=== PATIENT | female | born 1930 | race Caucasian/White ===

== ENCOUNTER 2018-10-13 12:09 | Inpatient (IN) | payer MEDICARE, BC ==
[~2018-10-13] VITALS: Ht 154.9 cm; Wt 57.7 kg
[2018-10-13] VITALS (12 sets, daily range): BP systolic 73–192; BP diastolic 28–82
[2018-10-13 12:40] LABS: BASOPHILS % (AUTO) 0.6 % (0-1); HEMATOCRIT 37.4 % (35.0-45.0); HEMOGLOBIN 12.6 g/dl (12.0-16.0); LYMPHOCYTES # (AUTO) 1.4 X10'3 (1.1-4.8); LYMPHOCYTES % (AUTO) 29.9 % (21-51); MEAN CORPUSCULAR HGB CONC 33.7 g/dL (33.0-36.5); MEAN PLATELET VOLUME 6.5 FL (7.4-10.4); MONOCYTES # (AUTO) 0.7 X10'3 (0-0.9); MONOCYTES % (AUTO) 14.9 % (2-12); NEUTROPHILS # (AUTO) 2.6 X10'3 (1.8-7.7); NEUTROPHILS % (AUTO) 53.6 % (42-75); PLATELET COUNT 297 X10'3 (140-440); RED BLOOD COUNT 4.07 X10'6 (4.20-5.60); RED CELL DISTRIBUTION WIDTH 12.8 % (11.5-14.5); WHITE BLOOD COUNT 4.8 X10'3 (4.5-11.0)
--- NOTE | 2018-10-13 12:40 | NUR ---
DR HORTON AT THE BEDSIDE PT BP 217/96. PER MD HE WILL ORDER NITRO IV TO REDUCE THE BP.PT DAUGHTER IN LAW AT BEDSIDE .CO PRESSURE PAIN 5/10 .
[2018-10-13 12:56] LABS: PARTIAL THROMBOPLASTIN TIME 27 SECONDS (22-32)
[2018-10-13 12:58] LABS: ALANINE AMINOTRANSFERASE 24 U/L (12-78); ALBUMIN 3.7 G/DL (3.4-5.0); ALBUMIN/GLOBULIN RATIO 1.2 (1.1-1.5); ALKALINE PHOSPHATASE 54 IU/L (46-116); ANION GAP 9 (8-16); ASPARTATE AMINO TRANSFERASE 17 U/L (10-37); BILIRUBIN,TOTAL 0.3 MG/DL (0.1-1.0); BLOOD UREA NITROGEN 21 MG/DL (7-18); BUN/CREATININE RATIO 25.6 (6.6-38.0); CALCIUM 8.6 MG/DL (8.5-10.1); CHLORIDE 91 MMOL/L (99-107); CREATININE 0.82 MG/DL (0.40-0.90); GLUCOSE 129 MG/DL (70-104); POTASSIUM 4.3 MMOL/L (3.5-5.1); SODIUM 125 MMOL/L (135-145); TOTAL CARBON DIOXIDE 24.7 MMOL/L (24-32); TOTAL PROTEIN 6.7 G/DL (6.4-8.2); eGFR 66 ML/MIN
[2018-10-13] MEDS ORDERED: nitroGLYCERIN-Tridil 50MG/D5W 250 ML IV PRN (13:03)
[2018-10-13] MEDS ORDERED: ipratropium/albuterol 3ml nebule NEB PRN (14:10)
[2018-10-13] MEDS ORDERED: magnesium 2GM in 50ml NS 50 ML IV PRN (14:10)
[2018-10-13] MEDS ORDERED: ondansetron/PF 4mg/2ml inj IV PRN (14:10)
[2018-10-13] MEDS ORDERED: magnesium 4gm in 100ml NS 100 ML IV PRN (14:10)
[2018-10-13] MEDS ORDERED: magnesium hydroxide 30ml (MOM) UD suspension PO PRN (14:10)
[2018-10-13] MEDS ORDERED: potassium Cl 20 mEq SR tablet PO PRN ×2 (14:10)
[2018-10-13] MEDS ORDERED: mag hydrox/Alum hydrox/simeth 30ml oral suspension PO PRN (14:10)
[2018-10-13] MEDS ORDERED: potassium CL 10mEq/100ml bag 100 ML IV PRN ×2 (14:10)
[2018-10-13] MEDS ORDERED: nitroGLYCERIN-Tridil 50MG/D5W 250 ML IV SCH (14:10)
[2018-10-13] MEDS ORDERED: magnesium Cl slow-release 64mg tablet PO PRN (14:10)
[2018-10-13] MEDS ORDERED: VITA1CAP19 PO (14:28)
[2018-10-13] MEDS ORDERED: LEVO125T PO (14:28)
[2018-10-13] MEDS ORDERED: POTA8TAB8 PO (14:28)
[2018-10-13] MEDS ORDERED: POLY17PO10 PO (14:28)
[2018-10-13] MEDS ORDERED: METO-395 PO (14:28)
[2018-10-13] MEDS ORDERED: GLUC100017 PO (14:28)
[2018-10-13] MEDS ORDERED: MAGN400T28 PO (14:28)
[2018-10-13] MEDS ORDERED: CHOL10002 PO (14:28)
[2018-10-13] MEDS ORDERED: RANI-648 PO ×2 (14:28)
[2018-10-13] MEDS ORDERED: ESTR0.5T TOP (14:28)
[2018-10-13] MEDS ORDERED: TURM1POW PO (14:28)
[2018-10-13] MEDS ORDERED: DICL100G15 TOP (14:28)
[2018-10-13] MEDS ORDERED: PYRI50TA13 PO (14:28)
[2018-10-13] MEDS ORDERED: KRIL500C PO (14:28)
[2018-10-13] MEDS ORDERED: METF-436 PO (14:28)
[2018-10-13] MEDS ORDERED: LIOT25TA6 PO (14:28)
[2018-10-13] MEDS ORDERED: CLON0.1T PO (14:28)
[2018-10-13] MEDS ORDERED: LEVO112T52 PO (14:28)
[2018-10-13] MEDS ORDERED: CYAN-51 PO (14:28)
[2018-10-13] MEDS ORDERED: MAGN250T29 PO (14:33)
[2018-10-13] MEDS ORDERED: AZIL1TAB2 PO (15:01)
[2018-10-13] MEDS ORDERED: ESTR42.510 TP (16:46)
--- NOTE | 2018-10-13 18:00 | NUR ---
Patient in room PCU 3023. I have received report from Mau JOSHUA and had the opportunity to ask questions and assume patient care.
--- NOTE | 2018-10-13 18:32 | NUR ---
Problems reprioritized. Patient report given, questions answered & plan of care reviewed with TRES Carmichael.
[2018-10-13] MEDS: simethicone 80mg chew tab PO SCH (20:38)
[2018-10-13] MEDS: famotidine 20mg tablet PO SCH (20:38)
[2018-10-13] MEDS ORDERED: metoprolol succinate 25mg (24-HOUR) SR. Tablet PO SCH (21:00)
[2018-10-13] MEDS ORDERED: VITAMIN B COMPLEX PO SCH (21:00)
[2018-10-13] MEDS ORDERED: polyethylene glycol 3350 17gm powd pack PO SCH (21:00)
[2018-10-13] MEDS ORDERED: vitamin B comp w/Vit. C tab 1 TAB TABLET PO SCH (21:00)
[2018-10-13] MEDS ORDERED: cyanocobalamin 500mcg tablet PO SCH (21:00)
[2018-10-13] MEDS: cloNIDine 0.1 mg tablet PO PRN (21:43)
[2018-10-14] VITALS (21 sets, daily range): BP systolic 110–180; BP diastolic 31–76
--- NOTE | 2018-10-14 | NUR ---
Patient having low blood pressure, called MD Neumann and okayed to DC Nitro drip.
[2018-10-14 00:48] LABS: BASOPHILS % (AUTO) 0.5 % (0-1); EOSINOPHILS # (AUTO) 0.1 X10'3 (0-0.9); EOSINOPHILS % (AUTO) 1.1 % (0-6); HEMATOCRIT 33.5 % (35.0-45.0); HEMOGLOBIN 11.7 g/dl (12.0-16.0); LYMPHOCYTES # (AUTO) 1.9 X10'3 (1.1-4.8); MEAN CORPUSCULAR HEMOGLOBIN 31.9 PG (27.0-31.0); MEAN CORPUSCULAR HGB CONC 35.1 g/dL (33.0-36.5); MEAN CORPUSCULAR VOLUME 90.9 FL (78-98); MEAN PLATELET VOLUME 6.4 FL (7.4-10.4); MONOCYTES # (AUTO) 0.7 X10'3 (0-0.9); MONOCYTES % (AUTO) 14.9 % (2-12); NEUTROPHILS # (AUTO) 2.3 X10'3 (1.8-7.7); NEUTROPHILS % (AUTO) 45.5 % (42-75); PLATELET COUNT 257 X10'3 (140-440); RED BLOOD COUNT 3.68 X10'6 (4.20-5.60); RED CELL DISTRIBUTION WIDTH 12.7 % (11.5-14.5)
[2018-10-14 00:58] LABS: ALANINE AMINOTRANSFERASE 23 U/L (12-78); ALBUMIN 3.3 G/DL (3.4-5.0); ALBUMIN/GLOBULIN RATIO 1.2 (1.1-1.5); ALKALINE PHOSPHATASE 48 IU/L (46-116); ANION GAP 8 (8-16); ASPARTATE AMINO TRANSFERASE 15 U/L (10-37); BILIRUBIN,TOTAL 0.3 MG/DL (0.1-1.0); BLOOD UREA NITROGEN 18 MG/DL (7-18); BUN/CREATININE RATIO 22.8 (6.6-38.0); CALCIUM 8.3 MG/DL (8.5-10.1); CHLORIDE 95 MMOL/L (99-107); CREATININE 0.79 MG/DL (0.40-0.90); GLUCOSE 97 MG/DL (70-104); SODIUM 129 MMOL/L (135-145); TOTAL CARBON DIOXIDE 25.8 MMOL/L (24-32); eGFR 69 ML/MIN
[2018-10-14 01:01] LABS: CHOL/HDL RATIO 1.9 (0.00-4.99); CHOLESTEROL 148 MG/DL (0-200); HDL CHOLESTEROL 78 MG/DL (35-60); LDL CHOLESTEROL 66 MG/DL (50-100); MAGNESIUM 1.8 MG/DL (1.5-2.4); TRIGLYCERIDES 36 MG/DL (20-135)
--- NOTE | 2018-10-14 04:55 | NUR ---
Patient family member, Cierra, stated that Loan's blood pressure can be erratic, "She can be gardening and have a blood pressure of 144 but when she sits down with family and chats she'll have a blood pressure of 170s."
--- NOTE | 2018-10-14 05:12 | NUR ---
Patient has slept well this shift. Ambulates to the bathroom with family's help at the bedside. No chest pain this shift. Blood pressure has been erratic, please see the vital signs. Patient is eager to go home.
--- NOTE | 2018-10-14 06:19 | NUR ---
Problems reprioritized. Patient report given, questions answered & plan of care reviewed with Mau JOSHUA.
--- NOTE | 2018-10-14 06:25 | NUR ---
Patient in room PCU 3023. I have received report from TRES Carmichael and had the opportunity to ask questions and assume patient care.
[2018-10-14] MEDS ORDERED: levoTHYROXINE 125mcg tablet PO SCH (07:00)
[2018-10-14] MEDS: K and/or MAG REPLACEMENT MC SCH (07:00)
--- NOTE | 2018-10-14 07:25 | NUR ---
PAGER ID: [phone] MESSAGE: [id number] Dr Ritchie Baker was going to order a cardiac consult but that never was done yesterday. Could we get a cardiac consult ordered. TRES León Ext [phone]
[2018-10-14] MEDS ORDERED: CHOLECALCIFEROL PO SCH (08:00)
[2018-10-14] MEDS ORDERED: non-formulary drug (Magnesium Oxide (Magnesium) 250 MG) PO SCH (08:00)
[2018-10-14] MEDS ORDERED: GLUCOSAMINE SULFATE PO SCH (08:00)
[2018-10-14] MEDS ORDERED: pyridoxine 50mg tablet PO SCH (08:00)
[2018-10-14] MEDS ORDERED: vitamin D (cholecalciferol) 1,000 unit tablet PO SCH (08:00)
[2018-10-14] MEDS ORDERED: LIOthyronine 25mcg tablet PO SCH (08:00)
[2018-10-14] MEDS ORDERED: TURMERIC 1 GM PO SCH (08:00)
[2018-10-14] MEDS: magnesium oxide 400mg tablet PO SCH (08:13)
[2018-10-14] MEDS: famotidine 20mg tablet PO SCH ×2 (08:14→19:11)
[2018-10-14] MEDS: simethicone 80mg chew tab PO SCH ×3 (08:14→20:15)
--- NOTE | 2018-10-14 08:49 | NUR ---
PAGER ID: [phone] MESSAGE: [id number] Loan Nova: Dr Dugan was going to order a cardio consult for her yesterday but never ordered one. Do you want to order one for her? TRES León Ext [phone]
[2018-10-14] MEDS ORDERED: NIFEdipine XL 30mg tablet PO SCH (10:00)
--- NOTE | 2018-10-14 10:15 | NUR ---
Patient in room PCU 3023. I have received report from TRES León and had the opportunity to ask questions and assume patient care.
--- NOTE | 2018-10-14 13:06 | NUR ---
Page sent to Dr. Sharif PAGER ID: [phone] MESSAGE: [phone] Loan Nova: Calling a rapid response on patient, heart rhythm converted to junctional, BP 80/50, patient symoptomatic on PCU
--- NOTE | 2018-10-14 13:10 | NUR ---
Upon entering patient's room, pt appeared diaphoretic, sweaty and stated felt dizzy. BP 80/50 and pulse 38. Rapid response called. ICU nurse at bedside and fluid bolus of [address] Sharif notified. After fluids administered, BP came up to 111/40, HR now 77. Patient states feeling better. Will continue to monitor.
[2018-10-14] MEDS ORDERED: polyethylene glycol 3350 17gm powd pack PO PRN (13:15)
--- NOTE | 2018-10-14 13:30 | NUR ---
I SPOKE TO DR MARTINEZ REGARDING EVENTS OF RAPID RESPONSE. DR MARTINEZ REQUESTED PT HAVE NS@100 X 6 HOURS. HOLD TONIGHT DOSE OF TOPROL XL. HE AGREES WITH PT DOSE OF PROCARDIA BEING LOWERED TO 30 MG Q DAY. WE WILL CONTINUE TO MONITOR. CURRENT HR IS SR @76 BPM, BP 111/40 MAP 55. FAMILY REMAINS AT BEDSIDE. Addendum: 10/14/18 at 1347 by Allison Faye RN Amended: Links added.
[2018-10-14] MEDS ORDERED: normal saline 1000ml 1,000 ML IV SCH (13:50)
--- NOTE | 2018-10-14 13:52 | NUR ---
Malnutrition consult: Pt seen at bedside reports low appetite for the last few weeks which she believes is secondary to medications. Pt reports -4 lbs in two weeks which is non-significant wt loss of 3%. Pt reports UBW 128-129 lbs, current documented wt is 127 lbs. Pt currently on heart healthy diet documented with 50% PO intake x 1 meal likely meeting nutrient needs for geriatric age. Pt with no decrease in muscle strength, edema, or visible fat or muscle wasting. Pt currently does not meet criteria for malnutrition. Pt denies food preferences at this time and was provided with alternative heart healthy menu to provide additional food options as well as RD contact information. Pt denies food allergies, difficulty chewing/swallowing, or constipation/diarrhea. Will continue to follow. Addendum: 10/14/18 at [address] Amended: Links added.
--- NOTE | 2018-10-14 18:00 | NUR ---
Patient in room PCU 3023. I have received report from Bree JOSHUA and had the opportunity to ask questions and assume patient care.
--- NOTE | 2018-10-14 18:54 | NUR ---
Problems reprioritized. Patient report given, questions answered & plan of care reviewed with TRES Carmichael.
--- NOTE | 2018-10-14 19:30 | NUR ---
BLOOD PRESSURE DROP Patient's blood pressure was stable in the 130s for SBP for two hours and patient felt good to get onto the bedside commode. I was there to give her a medication at 1900 when she started to slur her words and HR dropped to 40s and 30s. With the help of other staff we got her back to bed and she became alert and oriented, no pain, and stating "I'm alright." Bipin Blue was called but was not needed. I called MD Neumann about the event and no bedrest order was given, just to make sure "someone is with her when she is out of bed." After the episode, family member Cierra mentioned that the patient "strains every time she goes to the bathroom at home and we try to tell her not to." Will continue to monitor the patient.
[2018-10-14] MEDS ORDERED: metoprolol tartrate 12.5mg (1/2 tablet) PO SCH (21:00)
--- NOTE | 2018-10-14 21:00 | NUR ---
LOPRESSOR HELD Patient refused medication after vagal episode on the bedside commode.
--- NOTE | 2018-10-14 22:25 | NUR ---
DOUGLAS CATHETER Patient tried to use the WIC and bedpan to void for 20 min. but was unable to. Family member Cierra and I sat her up on the side of the bed to see how the patient would tolerate the position. Sadly the heart rate dropped to the 50s and we got her back into bed. MD Neumann was notified of the situation and gave the order for a Douglas catheter. Douglas catheter was placed and patient is feeling better from pressure relief. Will continue to monitor.
[2018-10-15] VITALS (16 sets, daily range): BP systolic 153–199; BP diastolic 52–97
[2018-10-15] MEDS: cloNIDine 0.1 mg tablet PO PRN (01:51)
--- NOTE | 2018-10-15 03:39 | NUR ---
HIGH BLOOD PRESSURE Patient has had SBP 177-182 for a few hours, please see vitals for reference, even with Clonidine 0.1 mg at 0151. MD Neumann notified and has stated to continue to monitor the patient. Will continue to monitor patient.
--- NOTE | 2018-10-15 06:08 | NUR ---
Problems reprioritized. Patient report given, questions answered & plan of care reviewed with Mau JOSHUA.
--- NOTE | 2018-10-15 06:17 | NUR ---
Patient in room PCU 3023. I have received report from TRES Carmichael and had the opportunity to ask questions and assume patient care.
[2018-10-15] MEDS ORDERED: levoTHYROXINE 88mcg tablet PO SCH (07:00)
[2018-10-15] MEDS ORDERED: levoTHYROXINE 125mcg tablet PO SCH (07:00)
[2018-10-15] MEDS: pantoprazole 40mg Tablet.DR PO SCH (07:34)
[2018-10-15] MEDS: magnesium oxide 400mg tablet PO SCH (07:35)
[2018-10-15] MEDS: famotidine 20mg tablet PO SCH ×2 (07:35→19:04)
--- NOTE | 2018-10-15 07:35 | NUR ---
Levothyroxine dose not administered. Pt reports she is to get 112 mcg of levothyroxine today. Daughter in law reports dose is monitored by MD at [facility]. Pt stated she takes 125 mcg on day 1, day 2, then 112 mcg on day 3. Will clarify dose with MD.
--- NOTE | 2018-10-15 07:46 | NUR ---
PAGER ID: [phone] MESSAGE: [id number] Loan Nova Heart is in the 30's and 40's, symptomatic, BP 90's. TRES León Ext [phone]
[2018-10-15] MEDS: K and/or MAG REPLACEMENT MC SCH (08:00)
[2018-10-15] MEDS ORDERED: NIFEdipine XL 30mg tablet PO SCH (08:00)
[2018-10-15] MEDS: simethicone 80mg chew tab PO SCH ×4 (08:00→21:00)
[2018-10-15 08:19] LABS: BASOPHILS % (AUTO) 0.2 % (0-1); EOSINOPHILS % (AUTO) 0.2 % (0-6); HEMATOCRIT 38.1 % (35.0-45.0); HEMOGLOBIN 13.3 g/dl (12.0-16.0); LYMPHOCYTES # (AUTO) 1.3 X10'3 (1.1-4.8); LYMPHOCYTES % (AUTO) 18.5 % (21-51); MEAN CORPUSCULAR HEMOGLOBIN 31.5 PG (27.0-31.0); MEAN CORPUSCULAR HGB CONC 34.9 g/dL (33.0-36.5); MEAN CORPUSCULAR VOLUME 90.2 FL (78-98); MEAN PLATELET VOLUME 6.7 FL (7.4-10.4); MONOCYTES # (AUTO) 0.6 X10'3 (0-0.9); MONOCYTES % (AUTO) 9.4 % (2-12); NEUTROPHILS # (AUTO) 4.9 X10'3 (1.8-7.7); NEUTROPHILS % (AUTO) 71.7 % (42-75); PLATELET COUNT 303 X10'3 (140-440); RED BLOOD COUNT 4.22 X10'6 (4.20-5.60); RED CELL DISTRIBUTION WIDTH 12.4 % (11.5-14.5); WHITE BLOOD COUNT 6.9 X10'3 (4.5-11.0)
[2018-10-15] MEDS: normal saline 1000ml 1,000 ML IV SCH ×3 (08:50→23:46)
[2018-10-15 09:01] LABS: ALANINE AMINOTRANSFERASE 24 U/L (12-78); ALBUMIN 3.4 G/DL (3.4-5.0); ALBUMIN/GLOBULIN RATIO 1.1 (1.1-1.5); ALKALINE PHOSPHATASE 57 IU/L (46-116); ANION GAP 9 (8-16); ASPARTATE AMINO TRANSFERASE 17 U/L (10-37); BILIRUBIN,TOTAL 0.4 MG/DL (0.1-1.0); BLOOD UREA NITROGEN 12 MG/DL (7-18); BUN/CREATININE RATIO 18.5 (6.6-38.0); CALCIUM 8.7 MG/DL (8.5-10.1); CHLORIDE 89 MMOL/L (99-107); CREATININE 0.65 MG/DL (0.40-0.90); GLUCOSE 139 MG/DL (70-104); MAGNESIUM 1.6 MG/DL (1.5-2.4); POTASSIUM 3.8 MMOL/L (3.5-5.1); SODIUM 124 MMOL/L (135-145); TOTAL CARBON DIOXIDE 26.2 MMOL/L (24-32); TOTAL PROTEIN 6.5 G/DL (6.4-8.2); eGFR 86 ML/MIN
--- NOTE | 2018-10-15 09:11 | NUR ---
PAGER ID: [phone] MESSAGE: [id number] Loan Nova: Daughter in law was wonder if you wanted a PRN nitro gtt for a blood pressure above a certain range. TRES León Ext [phone]
[2018-10-15] MEDS ORDERED: nitroGLYCERIN-Tridil 50MG/D5W 250 ML IV PRN (09:25)
--- NOTE | 2018-10-15 11:29 | NUR ---
Pt back to bed and positioned for comfort. Was up in chair for approx. an hour.
--- NOTE | 2018-10-15 12:16 | NUR ---
PAGER ID: [phone] MESSAGE: BEAU regarding RM [id number] Loan Nova: Nitro gtt start an hour ago, but BP still 170's-180's for last hour. TRES León Ext [phone]
--- NOTE | 2018-10-15 13:56 | NUR ---
Cardiac diet education consult: Pt admit with accelerated hypertension however with low Na and lipid panel WNL; education not warranted at this time. Will continue to follow. Addendum: 10/15/18 at [address] Amended: Links added.
--- NOTE | 2018-10-15 14:35 | NUR ---
PAGER ID: [phone] MESSAGE: [id number] Loan Nova: BP still staying around 160's. TRES León Ext [phone]
--- NOTE | 2018-10-15 14:45 | NUR ---
Dr. Dugan here to see pt., reviewed plan of care. Aware of BP readings, and headache.
[2018-10-15] MEDS: acetaminophen 325mg tablet PO PRN (14:48)
--- NOTE | 2018-10-15 16:37 | NUR ---
PAGER ID: [phone] MESSAGE: [phone] Loan Nova: has a head ache Tylenol hasn't helped. (Had head ache even before nitro gtt). Can we get something else to try and combat her H/A? TRES León Ext [phone]
[2018-10-15] MEDS ORDERED: diazepam 5mg tablet PO PRN (16:40)
--- NOTE | 2018-10-15 16:52 | NUR ---
PAGER ID: [phone] MESSAGE: [id number] Loan Noav, she wants to try something other than Valium for H/A that doesn't have the risk for drowsiness. TRES León Ext [phone]
[2018-10-15] MEDS: JUVEN Shake w/Arg/Glut/Ca2+Bmb (Juven 19.3gm) pkt 240ml PO SCH (18:00)
--- NOTE | 2018-10-15 18:00 | NUR ---
Patient in room PCU 3023. I have received report from Mau JOSHUA and Luis Carlos JOSHUA and had the opportunity to ask questions and assume patient care.
--- NOTE | 2018-10-15 18:06 | NUR ---
Problems reprioritized. Patient report given, questions answered & plan of care reviewed with Jany.
[2018-10-15] MEDS ORDERED: simethicone 80mg chew tab PO ONE (19:15)
--- NOTE | 2018-10-15 19:20 | NUR ---
PAGER ID: [phone] MESSAGE: [id number] Loan Nova. Patient is on Nitro 7mcg and her SBP in 180s for the last 1.5hrs. Do you want to order a prn? Jany JOSHUA [phone]
[2018-10-15] MEDS ORDERED: hydrALAZINE 20mg/ml inj. IV PRN (20:00)
[2018-10-15] MEDS: metoprolol tartrate 12.5mg (1/2 tablet) PO SCH (20:15)
--- NOTE | 2018-10-15 23:00 | NUR ---
Hydralazine Patient's BP responded well to hydralazine. Patient wanted me to know that whenever her BP gets too low she feels more gassy and bloated.
[2018-10-16] VITALS (11 sets, daily range): BP systolic 133–175; BP diastolic 48–73
[2018-10-16 06:25] LABS: BASOPHILS % (AUTO) 0.2 % (0-1); EOSINOPHILS % (AUTO) 0.4 % (0-6); HEMATOCRIT 33.9 % (35.0-45.0); HEMOGLOBIN 11.7 g/dl (12.0-16.0); LYMPHOCYTES # (AUTO) 1.8 X10'3 (1.1-4.8); LYMPHOCYTES % (AUTO) 24.3 % (21-51); MEAN CORPUSCULAR HEMOGLOBIN 31.2 PG (27.0-31.0); MEAN CORPUSCULAR HGB CONC 34.3 g/dL (33.0-36.5); MEAN CORPUSCULAR VOLUME 90.7 FL (78-98); MEAN PLATELET VOLUME 6.7 FL (7.4-10.4); MONOCYTES # (AUTO) 0.8 X10'3 (0-0.9); MONOCYTES % (AUTO) 10.7 % (2-12); NEUTROPHILS # (AUTO) 4.8 X10'3 (1.8-7.7); NEUTROPHILS % (AUTO) 64.4 % (42-75); PLATELET COUNT 286 X10'3 (140-440); RED BLOOD COUNT 3.74 X10'6 (4.20-5.60); RED CELL DISTRIBUTION WIDTH 12.3 % (11.5-14.5); WHITE BLOOD COUNT 7.5 X10'3 (4.5-11.0)
--- NOTE | 2018-10-16 06:26 | NUR ---
Problems reprioritized. Patient report given, questions answered & plan of care reviewed with Nora JOSHUA.
[2018-10-16 06:48] LABS: ALANINE AMINOTRANSFERASE 24 U/L (12-78); ALBUMIN 3.1 G/DL (3.4-5.0); ALBUMIN/GLOBULIN RATIO 1.1 (1.1-1.5); ALKALINE PHOSPHATASE 50 IU/L (46-116); ANION GAP 6 (8-16); ASPARTATE AMINO TRANSFERASE 20 U/L (10-37); BILIRUBIN,TOTAL 0.3 MG/DL (0.1-1.0); BLOOD UREA NITROGEN 10 MG/DL (7-18); BUN/CREATININE RATIO 15.9 (6.6-38.0); CALCIUM 8.3 MG/DL (8.5-10.1); CHLORIDE 93 MMOL/L (99-107); CREATININE 0.63 MG/DL (0.40-0.90); GLUCOSE 108 MG/DL (70-104); MAGNESIUM 1.7 MG/DL (1.5-2.4); POTASSIUM 3.5 MMOL/L (3.5-5.1); SODIUM 126 MMOL/L (135-145); TOTAL CARBON DIOXIDE 26.7 MMOL/L (24-32); TOTAL PROTEIN 5.9 G/DL (6.4-8.2); eGFR 89 ML/MIN
[2018-10-16] MEDS ORDERED: levoTHYROXINE 125mcg tablet PO SCH (07:00)
[2018-10-16] MEDS ORDERED: levoTHYROXINE 112mcg tablet PO SCH (07:00)
--- NOTE | 2018-10-16 07:13 | NUR ---
Patient in room PCU 3023. I have received report from TRES Carmichael and had the opportunity to ask questions and assume patient care.
[2018-10-16] MEDS: famotidine 20mg tablet PO SCH ×2 (07:36→19:51)
[2018-10-16] MEDS: pantoprazole 40mg Tablet.DR PO SCH (07:36)
[2018-10-16] MEDS: magnesium oxide 400mg tablet PO SCH (07:37)
[2018-10-16] MEDS: simethicone 80mg chew tab PO SCH ×3 (07:37→19:51)
[2018-10-16] MEDS: K and/or MAG REPLACEMENT MC SCH (07:41)
[2018-10-16] MEDS: NIFEdipine XL 30mg tablet PO SCH (08:40)
[2018-10-16] MEDS: acetaminophen 325mg tablet PO PRN (08:41)
[2018-10-16] MEDS: JUVEN Shake w/Arg/Glut/Ca2+Bmb (Juven 19.3gm) pkt 240ml PO SCH ×3 (08:44→18:03)
[2018-10-16] MEDS: normal saline 1000ml 1,000 ML IV SCH ×2 (10:14→19:55)
--- NOTE | 2018-10-16 10:46 | NUR ---
PAGED VASCULAR RE MESENTERIC U/S
--- NOTE | 2018-10-16 13:42 | NUR ---
PAGED DR BARRIOS PAGER ID: [phone] MESSAGE: GLORIA RIOS [phone] PRELIM MESS ARTERY U/S RESULTS ARE UP
--- NOTE | 2018-10-16 13:48 | NUR ---
PAGED VASCULAR TO PLEASE CALL TO CLARIFY RESULTS
--- NOTE | 2018-10-16 18:00 | NUR ---
Patient in room PCU 3023. I have received report from Nora JOSHUA and had the opportunity to ask questions and assume patient care.
--- NOTE | 2018-10-16 18:09 | NUR ---
Problems reprioritized. Patient report given, questions answered & plan of care reviewed with TRES LANCASTER.
[2018-10-16] MEDS: metoprolol tartrate 12.5mg (1/2 tablet) PO SCH (20:57)
[2018-10-17 02:00] VITALS: BP 169/76
--- NOTE | 2018-10-17 04:15 | NUR ---
Patient feels a lot better, was able to tolerate walking the hallway around the unit well. Patient took Lopressor with night time medications but is refusing to take anything else for hypertension because "when my blood pressure goes too low I feel sick to my stomach." Patient has been sleeping very well this shift. Will continue to monitor.
--- NOTE | 2018-10-17 06:35 | NUR ---
Patient in room PCU 3023. I have received report from Jany JOSHUA and had the opportunity to ask questions and assume patient care. Patient awake in bed with no complaints at this time. Daughter, Cierra bedside. All immediate needs met.
--- NOTE | 2018-10-17 06:45 | NUR ---
Problems reprioritized. Patient report given, questions answered & plan of care reviewed with Niesha JOSHUA.
[2018-10-17 06:47] LABS: BASOPHILS % (AUTO) 0.3 % (0-1); EOSINOPHILS % (AUTO) 0.4 % (0-6); HEMATOCRIT 36.4 % (35.0-45.0); HEMOGLOBIN 12.3 g/dl (12.0-16.0); LYMPHOCYTES # (AUTO) 1.5 X10'3 (1.1-4.8); LYMPHOCYTES % (AUTO) 20.1 % (21-51); MEAN CORPUSCULAR HEMOGLOBIN 31.2 PG (27.0-31.0); MEAN CORPUSCULAR HGB CONC 33.9 g/dL (33.0-36.5); MEAN CORPUSCULAR VOLUME 91.9 FL (78-98); MONOCYTES # (AUTO) 0.8 X10'3 (0-0.9); MONOCYTES % (AUTO) 10.6 % (2-12); NEUTROPHILS # (AUTO) 5.2 X10'3 (1.8-7.7); NEUTROPHILS % (AUTO) 68.6 % (42-75); PLATELET COUNT 291 X10'3 (140-440); RED BLOOD COUNT 3.96 X10'6 (4.20-5.60); RED CELL DISTRIBUTION WIDTH 12.5 % (11.5-14.5); WHITE BLOOD COUNT 7.5 X10'3 (4.5-11.0)
[2018-10-17 07:00] VITALS: BP 192/88
[2018-10-17 07:00] LABS: ALANINE AMINOTRANSFERASE 25 U/L (12-78); ALBUMIN 3.1 G/DL (3.4-5.0); ALKALINE PHOSPHATASE 53 IU/L (46-116); ANION GAP 7 (8-16); ASPARTATE AMINO TRANSFERASE 22 U/L (10-37); BILIRUBIN,TOTAL 0.3 MG/DL (0.1-1.0); BLOOD UREA NITROGEN 7 MG/DL (7-18); BUN/CREATININE RATIO 15.6 (6.6-38.0); CALCIUM 8.4 MG/DL (8.5-10.1); CHLORIDE 100 MMOL/L (99-107); CREATININE 0.45 MG/DL (0.40-0.90); GLUCOSE 95 MG/DL (70-104); MAGNESIUM 1.7 MG/DL (1.5-2.4); POTASSIUM 3.1 MMOL/L (3.5-5.1); SODIUM 133 MMOL/L (135-145); TOTAL CARBON DIOXIDE 25.7 MMOL/L (24-32); TOTAL PROTEIN 6.1 G/DL (6.4-8.2); eGFR > 90 ML/MIN
[2018-10-17] MEDS ORDERED: levoTHYROXINE 125mcg tablet PO SCH (07:00)
[2018-10-17] MEDS: famotidine 20mg tablet PO SCH (07:24)
[2018-10-17] MEDS: NIFEdipine XL 30mg tablet PO SCH (07:24)
[2018-10-17] MEDS: simethicone 80mg chew tab PO SCH ×2 (07:25→13:07)
[2018-10-17] MEDS: pantoprazole 40mg Tablet.DR PO SCH (07:25)
[2018-10-17] MEDS: magnesium oxide 400mg tablet PO SCH (07:29)
[2018-10-17] MEDS: K and/or MAG REPLACEMENT MC SCH (08:00)
[2018-10-17] MEDS: JUVEN Shake w/Arg/Glut/Ca2+Bmb (Juven 19.3gm) pkt 240ml PO SCH ×2 (08:00→13:00)
[2018-10-17] MEDS ORDERED: metoprolol tartrate 12.5mg (1/2 tablet) PO ONE (08:55)
--- NOTE | 2018-10-17 10:03 | NUR ---
PAGER ID: [phone] MESSAGE: RE: Loan Stark [phone]. Patient has not received PT. Do you want to order and eval and treat. Potassium was 3.1 today. Do you want to replace per protocol. Thank you. Niesha [phone]
--- NOTE | 2018-10-17 10:14 | NUR ---
New order from Dr. Dugan: Potassium protocol.
[2018-10-17] MEDS ORDERED: K and/or MAG REPLACEMENT MC SCH (10:15)
[2018-10-17] MEDS ORDERED: potassium CL 10mEq/100ml bag 100 ML IV PRN ×2 (10:15)
[2018-10-17] MEDS ORDERED: potassium Cl 20 mEq SR tablet PO PRN ×2 (10:15)
--- NOTE | 2018-10-17 10:30 | NUR ---
Discontinued walton catheter. Patient tolerated procedure well. Will monitor for first void. 1100 mL clear light yellow urine
[2018-10-17 11:00] VITALS: BP 146/65
[2018-10-17] MEDS ORDERED: iohexol 350MG/ML 100ml bottle IV ONE (12:06)
[2018-10-17] MEDS: normal saline 1000ml 1,000 ML IV SCH (13:09)
[2018-10-17 15:00] VITALS: BP 161/63
[2018-10-17] MEDS ORDERED: PRO30XLT PO (15:16)
[2018-10-17] MEDS ORDERED: POTA20TA10 PO (15:16)
--- NOTE | 2018-10-17 16:35 | NUR ---
Patient stable for discharge per MD orders. All discharge instructions reviewed with patient and daughter and all questions answered. Patient to follow up with Dr. Dumont in 1 week and get repeat BMP also. 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 PIV x 2 discontinued - cannulas intact. Telemetry monitoring discontinued. All patient belongings packed up and sent with patient in private vehicle to home. Patient wheeled to lobby by [facility], accompanied by family members.
[2018-10-17] MEDS ORDERED: metoprolol tartrate 12.5mg (1/2 tablet) PO SCH (20:00)
[2018-10-18] MEDS ORDERED: levoTHYROXINE 112mcg tablet PO SCH (07:00)
== END 2018-10-17 16:24 | disposition home or self-care (01) | DRG 305 ==
LOC: ER 12:10 → PCU 3S 14:51
PROVIDERS: ADMIT Family Medicine; ATTEND Family Medicine
DX: I16.0 Hypertensive urgency (principal); I77.4 Celiac artery compression syndrome; E87.1 Hypo-osmolality and hyponatremia; E03.9 Hypothyroidism, unspecified; E11.9 Type 2 diabetes mellitus without complications; I10 Essential (primary) hypertension; I95.1 Orthostatic hypotension; E86.0 Dehydration; I65.29 Occlusion and stenosis of unspecified carotid artery; G44.40 Drug-induced headache, not elsewhere classified, not intractable; T46.3X5A Adverse effect of coronary vasodilators, initial encounter; T50.2X5A Adverse effect of carbonic-anhydrase inhibitors, benzothiadiazides and other diuretics, initial encounter; E87.6 Hypokalemia; Z60.2 Problems related to living alone; K21.9 Gastro-esophageal reflux disease without esophagitis; M19.90 Unspecified osteoarthritis, unspecified site; Z79.84 Long term (current) use of oral hypoglycemic drugs; Z79.890 Hormone replacement therapy; Z79.899 Other long term (current) drug therapy; Z80.0 Family history of malignant neoplasm of digestive organs; Z86.73 Personal history of transient ischemic attack (TIA), and cerebral infarction without residual deficits; Z90.710 Acquired absence of both cervix and uterus; Z88.5 Allergy status to narcotic agent; Z90.49 Acquired absence of other specified parts of digestive tract; Z98.49 Cataract extraction status, unspecified eye; Y92.89 Other specified places as the place of occurrence of the external cause
CPT/HCPCS: 36415; 71045; 74174; 80053; 80061; 83735; 84439; 84443; 84484; 85025; 85610; 85730; 87081; 93005; 93306; 93975; 94760; 96365; 97162; 97530; 99285; G0378; J0360; J3420; J3490; J7030; Q9967